=== PATIENT | male | born 1985 | race Caucasian/White ===

== ENCOUNTER 2018-09-04 08:45 | Emergency (ER) | payer MEDICAID, SELFPAY ==
--- NOTE | 2018-09-04 10:17 | RAD ---
SINGLE VIEW PELVIS: Comparison: None. History: Right low back pain. FINDINGS: Single view of the pelvis shows no evidence of acute fracture or dislocation. No degenerative changes are seen. IMPRESSION: Unremarkable exam. POS: C
--- NOTE | 2018-09-04 10:52 | RAD ---
RIGHIT HIP TWO VIEWS: History: Right hip pain. FINDINGS: Joint space is preserved. Minimal osteophytosis and subchondral sclerosis. No acute fracture, disloca tion, or aggressive osseous erosions. IMPRESSION: Minimal osteoarthritic changes right hip. POS: ESTEPHANIE
== END 2018-09-04 10:40 | disposition home or self-care (01) ==
LOC: NAV ERS 08:45
DX: M54.5 Low back pain (principal); M25.551 Pain in right hip; F17.210 Nicotine dependence, cigarettes, uncomplicated; W01.0XXA Fall on same level from slipping, tripping and stumbling without subsequent striking against object, initial encounter
CPT/HCPCS: 72170